=== PATIENT | female | born 1965 | race Caucasian/White ===

== ENCOUNTER 2020-02-11 07:31 | Outpatient (REF) | payer BC, SELFPAY | END 2020-02-11 07:32 | disposition home or self-care (01) | LOC: HO.WFDLDS 07:31 | PROVIDERS: Visit Provider Internal Medicine | DX: Z20.828 Contact with and (suspected) exposure to other viral communicable diseases (principal) | CPT/HCPCS: C9803; U0003 ==

== ENCOUNTER 2022-06-11 19:16 | Emergency (ER) | payer BC, SELFPAY ==
--- NOTE | ~2022-06-11 | XR_ITS ---
EXAMINATION: CHEST 2 VIEWS CLINICAL INFORMATION: cough, SOB . COMPARISON: No recent pertinent prior studies are available for comparison. TECHNIQUE: PA and lateral views of the chest obtained. FINDINGS: The lungs are well expanded. No focal infiltrate, effusion, edema, or pneumothorax. Cardiac and mediastinal silhouettes are within normal limits for technique. No acute bony abnormality seen with cervical spine hardware partially visualized XR/XR chest 2V IMPRESSION: No evidence of acute disease
[2022-06-11 19:53] VITALS: BP 148/96; PULSE 97; RESP 20; TEMP 36.7; O2SAT 96; BMI 26.4
--- NOTE | 2022-06-11 19:53 | ED.GENADULT ---
HPI - General Adult General Chief complaint: Upper Respiratory Symptoms <ALCIDES Connelly - Last Filed: 06/11/22 19:54> Stated complaint: sinus infection? <ALCIDES Connelly - Last Filed: 06/11/22 19:54> Time Seen by Provider: 06/11/22 21:09 <ALCIDES Connelly - Last Filed: 06/11/22 19:54> Source: patient <Vitaly Clark MD - Last Filed: 06/11/22 22:55> Mode of arrival: ambulatory <Vitaly Clark MD - Last Filed: 06/11/22 22:55> Limitations: no limitations <Vitaly Clark MD - Last Filed: 06/11/22 22:55> History of Present Illness HPI narrative: Patient ex-smoker with history of COPD usually stable not using inhaler been coughing for last 1 week prescribed here up by PCP now she is getting mucopurulent phlegm no fever no chest pain or palpitation no leg swelling <Vitaly Clark MD - Last Filed: 06/11/22 22:55> Related Data Home medications: Previous Rx's Medication Instructions Recorded benzonatate 200 mg capsule 200 mg PO TID PRN cough #30 caps 06/11/22 doxycycline hyclate 100 mg tablet 100 mg PO BID #20 tabs 06/11/22 prednisone 20 mg tablet 40 mg PO DAILY #10 tabs 06/11/22 <ALCIDES Connelly - Last Filed: 06/11/22 19:54> Allergies/adverse reactions: Allergies Allergy/AdvReac Type Severity Reaction Status Date / Time No Known Allergies Allergy Verified 06/11/22 19:53 <ALCIDES Connelly - Last Filed: 06/11/22 19:54> Review of Systems Review of Systems: Yes all other systems are reviewed and are negative <Vitaly Clark MD - Last Filed: 06/11/22 22:55> PMF Social History Social History: Social History Smoked in Last 30 Days: No Use of substances other than those prescribed or required for medical reasons: Yes Substance Use Type: Marijuana Advance Directives: No Advance Directives Information Provided: No Patient : No <ALCIDES Connelly - Last Filed: 06/11/22 19:54> Physical Exam ED Vital Signs: Vital Signs - 24 hr 06/11/22 19:53 06/11/22 21:58 06/11/22 22:24 Temperature 98.1 F 98.5 F Pulse Rate 97 84 102 H Respiratory Rate 20 16 18 Blood Pressure 148/96 H 151/78 H Pulse Oximetry 96 93 Oxygen Delivery Method Room Air Room Air 06/11/22 22:28 Temperature Pulse Rate Respiratory Rate Blood Pressure Pulse Oximetry 93 Oxygen Delivery Method Room Air BMI result Body Mass Index 26.4 <ALCIDES Connelly - Last Filed: 06/11/22 19:54> Vital Signs - 24 hr 06/11/22 19:53 06/11/22 21:58 06/11/22 22:24 Temperature 98.1 F 98.5 F Pulse Rate 97 84 102 H Respiratory Rate 20 16 18 Blood Pressure 148/96 H 151/78 H Pulse Oximetry 96 93 Oxygen Delivery Method Room Air Room Air 06/11/22 22:28 Temperature Pulse Rate Respiratory Rate Blood Pressure Pulse Oximetry 93 Oxygen Delivery Method Room Air BMI result Body Mass Index 26.4 <Vitaly Clark MD - Last Filed: 06/11/22 22:55> Appearance: Alert. Oriented X3. No acute distress. ENT: Pharynx normal. Oral Mucosa moist Neck: Normal inspection. Neck supple. CVS: Normal heart rate and rhythm. Pulses normal. Respiratory: No respiratory distress. Equal air entry bilateral, bilateral wheezing no crackle Abdomen: Soft and nontender. Bowel sounds are present, Skin: Skin warm and dry. Normal skin color. Normal skin turgor. Extremities: No lower extremity edema. No calf tenderness Neuro: Oriented X 3. <Vitaly Clark MD - Last Filed: 06/11/22 22:55> Course Course Course Narrative: RME performed by Eliana Braswell PA-C. Patient is a 57 year old female presenting to the emergency department with increased shortness of breath and feeling generally unwell over the last week. Patient states that she called her health data administrator who follows her for COPD and he gave her a rescue inhaler that isn't helping. Labs, swab, and CXR ordered. Patient placed back in the waiting room pending room availability and results. <ALCIDES Connelly - Last Filed: 06/11/22 19:54> Medications Administered Discontinued Medications Generic Name Dose Route Start Last Admin Trade Name Freq PRN Reason Stop Dose Admin Benzonatate 200 mg 06/11/22 21:34 06/11/22 22:01 Benzonatate 100 Mg Capsule PO 06/11/22 21:35 200 mg ONCE ONE Administration Albuterol Sulfate 5 mg/ 0 mg 06/11/22 21:34 06/11/22 21:55 Ipratropium [place] 0.5 mg INHALE 06/11/22 21:35 1 each ONCE ONE Administration Dexamethasone 10 mg 06/11/22 21:34 06/11/22 22:01 Dexamethasone 2 Mg Tablet PO 06/11/22 21:35 10 mg ONCE ONE Administration Doxycycline Monohydrate 100 mg 06/11/22 21:34 06/11/22 22:01 Doxycycline Monohydrate 100 Mg Capsule PO 06/11/22 21:35 100 mg ONCE ONE Administration <ALCIDES Connelly - Last Filed: 06/11/22 19:54> Medications Administered Discontinued Medications Generic Name Dose Route Start Last Admin Trade Name Freq PRN Reason Stop Dose Admin Benzonatate 200 mg 06/11/22 21:34 06/11/22 22:01 Benzonatate 100 Mg Capsule PO 06/11/22 21:35 200 mg ONCE ONE Administration Albuterol Sulfate 5 mg/ 0 mg 06/11/22 21:34 06/11/22 21:55 Ipratropium [place] 0.5 mg INHALE 06/11/22 21:35 1 each ONCE ONE Administration Dexamethasone 10 mg 06/11/22 21:34 06/11/22 22:01 Dexamethasone 2 Mg Tablet PO 06/11/22 21:35 10 mg ONCE ONE Administration Doxycycline Monohydrate 100 mg 06/11/22 21:34 06/11/22 22:01 Doxycycline Monohydrate 100 Mg Capsule PO 06/11/22 21:35 100 mg ONCE ONE Administration <Vitaly Clark MD - Last Filed: 06/11/22 22:55> Medical Decision Making Medical Decision Making MDM Narrative: Patient clinically with bronchitis chest x-ray negative labs stable discharge patient home prednisone antibiotic advised to continue inhaler <Vitaly Clark MD - Last Filed: 06/11/22 22:55> Lab Data MDM Lab Attestation statement: I reviewed the patient's lab results. <Vitaly Clark MD - Last Filed: 06/11/22 22:55> Result Diagrams: 06/11/22 20:12 06/11/22 20:12 <ALCIDES Connelly - Last Filed: 06/11/22 19:54> Labs: Lab Results 06/11/22 06/11/22 06/11/22 Range/Units 20:12 20:12 20:12 WBC 10.2 (4.8-10.8) X10*3/uL RBC 5.18 (4.20-5.50) X10*6/uL Hgb 15.0 (12.0-16.0) g/dl Hct 44.8 (37.0-47.0) % MCV 86.5 (80.0-98.0) fL MCH 29.0 (27.0-33.0) pg MCHC 33.5 (31.0-35.0) g/dl RDW 12.9 (11.0-16.0) % Plt Count 309 (160-400) X10*3/uL MPV 9.0 L (9.4-12.3) fL Immature Gran % (Auto) 0.3 (0.0-0.4) % Neut % (Auto) 59.8 (45-73) % Lymph % (Auto) 32.6 (20-40) % [place] % (Auto) 4.3 (2-11) % Eos % (Auto) 2.2 (0-4) % Baso % (Auto) 0.8 (0-2) % Lymph # (Auto) 3.3 (1.2-4.9) X10*3/uL [place] # (Auto) 0.4 (0.1-1.2) X10*3/uL Eos # (Auto) 0.2 (0.0-0.4) X10*3/uL Baso # (Auto) 0.1 (0.0-0.2) X10*3/uL Abs Immat Gran (auto) 0.03 (0.00-0.03) X10*3/uL Absolute Neuts (auto) 6.1 (2.0-8.3) x10*3/uL Absolute Nucleated RBC 0.000 (0.0-0.012) X10*3/uL Nucleated RBC % (auto) 0.0 (0.0-0.2) /100WBC Smear Tech's Comments VERIFIED Sodium 139 (135-145) mmol/L Potassium 4.2 (3.3-5.1) mmol/L Chloride 106 (96-108) mmol/L Carbon Dioxide 22 (22-29) mmol/L Anion Gap 15 (12-20) BUN 13 (9-16) mg/dL Creatinine 0.95 (0.5-1.4) mg/dL Estim Creat Clear Calc 55.8 Estimated GFR > 60 Random Glucose 98 (60-115) mg/dL Calcium 9.0 (8.4-10.2) mg/dL Magnesium 2.2 (1.6-2.6) mg/dL Total Bilirubin 0.3 (0.0-1.0) mg/dL AST 15 (5-31) U/L ALT 17 (0-31) U/L Alkaline Phosphatase 80 (39-117) U/L Total Protein 7.1 (6.5-8.0) g/dL Albumin 4.3 (3.5-5.0) g/dL Influenza Type A (PCR) NEGATIVE (Negative) Influenza Type B (PCR) NEGATIVE (Negative) RSV RNA Qual (PCR) NEGATIVE (Negative) SARS-CoV-2 RNA (RT-PCR) NEGATIVE (Negative) <ALCIDES Connelly - Last Filed: 06/11/22 19:54> Lab Results 06/11/22 06/11/22 06/11/22 Range/Units 20:12 20:12 20:12 WBC 10.2 (4.8-10.8) X10*3/uL RBC 5.18 (4.20-5.50) X10*6/uL Hgb 15.0 (12.0-16.0) g/dl Hct 44.8 (37.0-47.0) % MCV 86.5 (80.0-98.0) fL MCH 29.0 (27.0-33.0) pg MCHC 33.5 (31.0-35.0) g/dl RDW 12.9 (11.0-16.0) % Plt Count 309 (160-400) X10*3/uL MPV 9.0 L (9.4-12.3) fL Immature Gran % (Auto) 0.3 (0.0-0.4) % Neut % (Auto) 59.8 (45-73) % Lymph % (Auto) 32.6 (20-40) % [place] % (Auto) 4.3 (2-11) % Eos % (Auto) 2.2 (0-4) % Baso % (Auto) 0.8 (0-2) % Lymph # (Auto) 3.3 (1.2-4.9) X10*3/uL [place] # (Auto) 0.4 (0.1-1.2) X10*3/uL Eos # (Auto) 0.2 (0.0-0.4) X10*3/uL Baso # (Auto) 0.1 (0.0-0.2) X10*3/uL Abs Immat Gran (auto) 0.03 (0.00-0.03) X10*3/uL Absolute Neuts (auto) 6.1 (2.0-8.3) x10*3/uL Absolute Nucleated RBC 0.000 (0.0-0.012) X10*3/uL Nucleated RBC % (auto) 0.0 (0.0-0.2) /100WBC Smear Tech's Comments VERIFIED Sodium 139 (135-145) mmol/L Potassium 4.2 (3.3-5.1) mmol/L Chloride 106 (96-108) mmol/L Carbon Dioxide 22 (22-29) mmol/L Anion Gap 15 (12-20) BUN 13 (9-16) mg/dL Creatinine 0.95 (0.5-1.4) mg/dL Estim Creat Clear Calc 55.8 Estimated GFR > 60 Random Glucose 98 (60-115) mg/dL Calcium 9.0 (8.4-10.2) mg/dL Magnesium 2.2 (1.6-2.6) mg/dL Total Bilirubin 0.3 (0.0-1.0) mg/dL AST 15 (5-31) U/L ALT 17 (0-31) U/L Alkaline Phosphatase 80 (39-117) U/L Total Protein 7.1 (6.5-8.0) g/dL Albumin 4.3 (3.5-5.0) g/dL Influenza Type A (PCR) NEGATIVE (Negative) Influenza Type B (PCR) NEGATIVE (Negative) RSV RNA Qual (PCR) NEGATIVE (Negative) SARS-CoV-2 RNA (RT-PCR) NEGATIVE (Negative) <Vitaly Clark MD - Last Filed: 06/11/22 22:55> Discharge Plan Discharge Clinical Impression: Bronchitis <ALCIDES Connelly - Last Filed: 06/11/22 19:54> Patient Disposition: Home, Self-Care <ALCIDES Connelly - Last Filed: 06/11/22 19:54> Instructions: Acute Bronchitis (ED) <ALCIDES Connelly - Last Filed: 06/11/22 19:54> Additional Instructions: Continue to use albuterol inhaler 2 puffs every 4-6 hours as needed Prednisone antibiotics and cough drops as prescribed Follow up with PCP as needed <ALCIDES Connelly - Last Filed: 06/11/22 19:54> Prescriptions: New benzonatate 200 mg capsule 200 mg PO TID PRN (Reason: cough) Qty: 30 0RF prednisone 20 mg tablet 40 mg PO DAILY Qty: 10 0RF doxycycline hyclate 100 mg tablet 100 mg PO BID Qty: 20 0RF <ALCIDES Connelly - Last Filed: 06/11/22 19:54>
[2022-06-11 20:25] LABS: Imm Gran Abs Auto 0.03 X10*3/uL (0.00-0.03); Imm Gran Pct Auto 0.3 % (0.0-0.4); MANUAL DIFF FLAG SCAN; SCAN SMEAR FLAG 1
[2022-06-11 20:34] LABS: Alanine Aminotransferase 17 U/L (0-31); Albumin Level 4.3 g/dL (3.5-5.0); Alkaline Phosphatase 80 U/L (39-117); Anion Gap 15 (12-20); Aspartate Amino Transferase 15 U/L (5-31); Bilirubin Total 0.3 mg/dL (0.0-1.0); Blood Urea Nitrogen 13 mg/dL (9-16); Carbon Dioxide 22 mmol/L (22-29); Chloride 106 mmol/L (96-108); Creatinine Clr Calc Pharmacy 55.8; Estimated Glomerular Filt Rate > 60; Glucose Random 98 mg/dL (60-115); Magnesium 2.2 mg/dL (1.6-2.6); Potassium 4.2 mmol/L (3.3-5.1); Sodium 139 mmol/L (135-145); Total Protein 7.1 g/dL (6.5-8.0)
[2022-06-11 20:38] LABS: Basophils Absolute Auto 0.1 X10*3/uL (0.0-0.2); Basophils Percent Auto 0.8 % (0-2); Eosinophils Absolute Auto 0.2 X10*3/uL (0.0-0.4); Eosinophils Percent Auto 2.2 % (0-4); Hematocrit 44.8 % (37.0-47.0); Lymphocytes Absolute Auto 3.3 X10*3/uL (1.2-4.9); Lymphocytes Percent Auto 32.6 % (20-40); Mean Corpuscular HGB Conc 33.5 g/dl (31.0-35.0); Mean Corpuscular Volume 86.5 fL (80.0-98.0); Monocytes Absolute Auto 0.4 X10*3/uL (0.1-1.2); Monocytes Percent Auto 4.3 % (2-11); Neutrophils Absolute Auto 6.1 x10*3/uL (2.0-8.3); Neutrophils Percent Auto 59.8 % (45-73); Platelet Count 309 X10*3/uL (160-400); Red Blood Count 5.18 X10*6/uL (4.20-5.50); Red Cell Distribution Width 12.9 % (11.0-16.0); White Blood Count 10.2 X10*3/uL (4.8-10.8)
[2022-06-11 20:46] LABS: SLIDE REVIEW VERIFIED
[2022-06-11 20:57] LABS: Influenza A PCR NEGATIVE (Negative); Influenza B PCR NEGATIVE (Negative); Resp Syncy Virus RNA Qual PCR NEGATIVE (Negative); SARS COV2 PCR INHOUSE NEGATIVE (Negative)
[2022-06-11 21:58] VITALS: PULSE 84; RESP 16; O2SAT 99
[2022-06-11] MEDS: Doxycycline Monohydrate 100 MG CAPSULE PO (22:01)
[2022-06-11] MEDS: Benzonatate 100 MG CAPSULE 200 MG PO (22:01)
[2022-06-11] MEDS: dexAMETHasone 2 MG TABLET 10 MG PO (22:01)
[2022-06-11 22:24] VITALS: BP 151/78; PULSE 102; RESP 18; TEMP 36.9; O2SAT 93
[2022-06-11 22:28] VITALS: O2SAT 93
[2022-06-11 23:10] VITALS: BP 153/86; PULSE 101; RESP 16; O2SAT 96
--- NOTE | 2022-06-11 23:35 | PC.NURSE ---
late entry- pt medicated according to renetta. RT at bedside
--- NOTE | 2022-06-11 23:35 | PC.NURSE ---
pt ambulatory at bedside. pt denies sob. skin pwd. pt provided with discharge plan. pt verbalizes understanding of discharge plan
== END 2022-06-11 23:37 | disposition home or self-care (01) ==
PROVIDERS: Physician Assistant Medical; Emergency Provider Internal Medicine; PCP Internal Medicine
DX: J40 Bronchitis, not specified as acute or chronic (principal); R06.02 Shortness of breath; Z20.822 Contact with and (suspected) exposure to COVID-19; Z20.828 Contact with and (suspected) exposure to other viral communicable diseases; F12.90 Cannabis use, unspecified, uncomplicated
CPT/HCPCS: 0241U; 71046; 80053; 83735; 85025; 94640; 99284; J8540

== ENCOUNTER 2024-01-07 06:48 | Emergency (ER) | payer BC, SELFPAY ==
--- NOTE | ~2024-01-07 | XR_ITS ---
EXAMINATION: XR CHEST CLINICAL INFORMATION: Cough. Shortness of breath. COMPARISON: Chest x-ray June 11, 2022 TECHNIQUE: 2 views of the chest were obtained. FINDINGS: Cardiac silhouette is normal in size. The lungs are well aerated. There is no lobar consolidation. No pleural effusion or pneumothorax. No acute osseous abnormality. Partially visualized hardware of the cervical spine. XR/XR chest 2V IMPRESSION: No acute pulmonary pathology. Electronically signed by: Negrito Pelayo MD 01/07/2024 07:35 AM EDT
[2024-01-07 07:04] VITALS: BP 150/79; PULSE 84; RESP 16; TEMP 36.5; O2SAT 97; BMI 25.3
--- NOTE | 2024-01-07 07:07 | ECG_ITS ---
Test Reason : CHEST PAIN Blood Pressure : / mmHG Vent. Rate : 080 BPM Atrial Rate : 080 BPM P-R Int : 134 ms QRS Dur : 072 ms QT Int : 358 ms P-R-T Axes : 066 061 054 degrees QTc Int : 412 ms Normal sinus rhythm Cannot rule out Anterior infarct , age undetermined Abnormal ECG No previous ECGs available Referred By: Generic ED Physician Electronically Signed By:GABRIEL TAVAREZ
[2024-01-07 07:58] VITALS: BP 155/88; PULSE 83; RESP 17; TEMP 36.9; O2SAT 95
[2024-01-07 08:28] LABS: Influenza A PCR NEGATIVE (Negative); Influenza B PCR NEGATIVE (Negative); Resp Syncy Virus RNA Qual PCR NEGATIVE (Negative); SARS COV2 PCR INHOUSE NEGATIVE (Negative)
--- NOTE | 2024-01-07 10:05 | ED_ITS ---
HPI - General Adult General Chief complaint: Upper Respiratory Symptoms Stated complaint: respiratory infection Time Seen by Provider: 01/07/24 09:08 Source: patient Mode of arrival: ambulatory Limitations: no limitations History of Present Illness ED Provider: Adam Martinez HPI narrative: 58-year-old female with past medical history of COPD presents to ED for 1 week of coughing, sore throat, ear pain, coughing with yellow phlegm, and chest pain only when she coughs. Patient denies any leg swelling, coughing up blood, pleurisy, recent long travel, recent surgery. Patient states fever and chills Related Data Previous Rx's ?Medication ?Instructions ?Recorded benzonatate 200 mg capsule 200 mg PO TID PRN cough #30 caps 06/11/22 doxycycline hyclate 100 mg tablet 100 mg PO BID #20 tabs 06/11/22 prednisone 20 mg tablet 40 mg (2 x 20 mg) PO DAILY #10 tabs 06/11/22 benzonatate 200 mg capsule 200 mg PO TID PRN cough 5 days #15 01/07/24 caps doxycycline hyclate 100 mg capsule 100 mg PO BID 5 days #10 caps 01/07/24 prednisone 20 mg tablet 40 mg (2 x 20 mg) PO DAILY 5 days 01/07/24 #10 tabs Allergies Allergy/AdvReac Type Severity Reaction Status Date / Time tramadol [From [facility]] Allergy Anxiety Verified 01/07/24 07:07 Review of Systems Review of Systems: Coughing yellow phlegm, left ear pain, sore throat, fever chills Yes all other systems are reviewed and are negative PMFSH Social History Social History Substance Use Type: Marijuana Advance Directives: No Physical Exam ED Vital Signs: Vital Signs - 24 hr 01/07/24 07:04 01/07/24 07:58 01/07/24 10:36 Temperature 97.7 F 98.4 F 98.9 F Pulse Rate 84 83 85 Respiratory Rate 16 17 18 Blood Pressure 150/79 H 155/88 H 150/76 H Pulse Oximetry 97 95 96 Oxygen Delivery Method Room Air Room Air Room Air BMI result Body Mass Index 25.3 Const General: cooperative, healthy appearing, comfortable, no acute distress, well developed, alert, awake and Physically active Orientation/consciousness: patient oriented x3 HENMT Head: Yes normal to inspection, Yes No palpable skull fracture present, Yes normocephalic, Yes atraumatic and No abrasion Ears: hearing grossly normal bilaterally, external ears normal, TM's normal bilaterally, TM normal on the right, TM normal on the left, EAC's normal, mastoids normal and no periauricular adenopathy Throat: Yes posterior oropharynx normal, Yes tonsils normal and Yes uvula midline Eyes General: appearance normal, both eyes and all related structures Neck Neck: Yes normal visual inspection, Yes full ROM, Yes no lymphadenopathy, Yes no meningeal signs, Yes trachea midline, Yes supple, No anterior neck swelling and No tender Chest Chest palpation & inspection: normal inspection of the chest and normal palpation of entire chest wall Resp Effort & Inspection: normal respiratory effort and able to speak in complete sentences Auscultation: clear to auscultation bilaterally Cardio Jugular venous distension: no JVD Heart sounds: S1 normal heart sound present and S2 normal heart sound present GI Inspection: Yes normal to inspection Palpation (GI): Soft to palpation, not firm, nontender, no guarding and not rigid General: No CVA tenderness and Yes no CVA tenderness Back/Spine/Pelvis Back: no CVA tenderness, No CVA tenderness and No back tenderness Skin General skin exam: no rashes or lesions noted, elasticity normal and turgor normal Neuro General: patient oriented x3, gait normal, tone normal, moves all extremities, Normal light touch and pain sensation, no meningeal signs, no focal motor deficits, CN's II-XI intact bilaterally and normal sensation to monofilament Extrem General: Yes normal to inspection, Yes full ROM and Yes capillary refill normal Psych Appearance: grossly normal, well kempt and not disheveled Medical Decision Making Medical Decision Making MDM Narrative: 58-year-old female with history of COPD presents to the ED for URI symptoms. Chest x-ray negative for pneumonia. SARs COVID influenza RSV negative. Patient will be discharged with steroids, Tessalon Perles, pain medication, and azithromycin. X-ray 5 days after symptoms negative for pneumonia, but we will discharged with doxycline treated as bronchitis. Not suspecting PE, chelita anginga, peritonsillar abscess, retropharyngeal abscess, CHF, or myocardial infarction. Patient explained worrisome signs of informed to return to the ED immediately Differential Diagnosis Differential Diagnoses: The differential diagnosis associated with the presentation includes (Pneumonia, COVID, influenza, RSV,) Admission/Observation Consideration of admission/observation: Escalation of care including admission/observation considered Lab Data MDM Lab Attestation statement: I reviewed the patient's lab results. Labs: Lab Results 01/07/24 Range/Units 07:20 Influenza Type A (PCR) NEGATIVE (Negative) Influenza Type B (PCR) NEGATIVE (Negative) RSV RNA Qual (PCR) NEGATIVE (Negative) SARS-CoV-2 RNA (RT-PCR) NEGATIVE (Negative) Independent Interpretation I performed an independent interpretation of an: Plain X-Ray Radiology Impression Discussion of test interpretation with radiology: I have reviewed the radiologist's reading. Independent Historian Clinical information obtained from an independent historian. History obtained from or confirmed by: Other (patient) External Record Review External record reviewed: Other (prior visits) Prescription Management I considered prescription management with: Antibiotic (Azithromycin) and Other (Tessalon Perles, prednisone) Discharge Plan Discharge Clinical Impression: Bronchitis Patient Disposition: Home, Self-Care Instructions: Acute Bronchitis (ED) Additional Instructions: Return to ED immediately for any chest pain, shortness of breath, coughing up blood, leg swelling, calf pain, chest pain/shortness of breath on inspiration, weakness, dizziness, drooling, change in voice, inability tolerate solid food/liquid, or any other concerning symptoms. COntinue using albuterol inhaler as needed. [place] [id number] XRay Report Signed Patient: Amy Tavera MR#: [id number] : 1965 Acct:[id number] Age/Sex: 58 / F ADM Date: 01/07/24 Loc: .ED Attending Dr: Ordering Physician: Generic ED Physician Date of Service: 01/07/24 Procedure(s): XR chest 2V Accession Number(s): [id number] cc: Generic ED Physician; Physician,Unknown ~ EXAMINATION: XR CHEST CLINICAL INFORMATION: Cough. Shortness of breath. COMPARISON: Chest x-ray June 11, 2022 TECHNIQUE: 2 views of the chest were obtained. FINDINGS: Cardiac silhouette is normal in size. The lungs are well aerated. There is no lobar consolidation. No pleural effusion or pneumothorax. No acute osseous abnormality. Partially visualized hardware of the cervical spine. XR/XR chest 2V IMPRESSION: No acute pulmonary pathology. Electronically signed by: Negrito Pelayo MD 01/07/2024 07:35 AM EDT RP Prescriptions: New doxycycline hyclate 100 mg capsule 100 mg PO BID 5 Days Qty: 10 0RF prednisone 20 mg tablet 40 mg PO DAILY 5 Days Qty: 10 0RF benzonatate 200 mg capsule 200 mg PO TID PRN (Reason: cough) 5 Days Qty: 15 0RF No Action benzonatate 200 mg capsule 200 mg PO TID PRN (Reason: cough) Qty: 30 0RF prednisone 20 mg tablet 40 mg PO DAILY Qty: 10 0RF doxycycline hyclate 100 mg tablet 100 mg PO BID Qty: 20 0RF Stand Alone Forms: Work/School Release Interventions: ED Discharge Assessment Last Done: 01/07/24 10:36 Discharge Date/Time: 01/07/24 10:37 Print Language: French
[2024-01-07 10:36] VITALS: BP 150/76; PULSE 85; RESP 18; TEMP 37.2; O2SAT 96
== END 2024-01-07 10:37 | disposition home or self-care (01) ==
PROVIDERS: Emergency Provider Emergency Medicine
DX: J40 Bronchitis, not specified as acute or chronic (principal); J44.9 Chronic obstructive pulmonary disease, unspecified; R05.9 Cough, unspecified; J02.9 Acute pharyngitis, unspecified; R07.89 Other chest pain; Z79.899 Other long term (current) drug therapy; Z03.818 Encounter for observation for suspected exposure to other biological agents ruled out
CPT/HCPCS: 0241U; 71046; 93005; 99284